=== PATIENT | female | born 1975 | race Caucasian/White ===

== ENCOUNTER 2025-06-25 09:10 | Outpatient (CLI) | payer OTHER, SELFPAY ==
--- NOTE | 2025-06-25 09:00 | MM_ITS ---
WS: [id number] BILATERAL 3D TOMOSYNTHESIS DIGITAL SCREENING MAMMOGRAPHY WITH CAD CLINICAL INFORMATION: SCREENING HISTORY: Screening mammogram. No current complaints. COMPARISON: None available TECHNIQUE: Bilateral CC and MLO views. FINDINGS: The breasts are composed of heterogeneous fibroglandular density tissue, which can limit the detection of small underlying mass lesions. Nodular focal asymmetric density measuring 9 mm posterior depth RIGHT breast near the 6 o'clock position. Recommend further evaluation with RIGHT breast diagnostic ma mmography and ultrasound if persistent. Unremarkable LEFT breast MM/MM scr BI tomosynthesis [id number] IMPRESSION: DENSITY: The breasts are heterogeneously dense, which may obscure small masses. BI-RADS: 0 - Incomplete: Need additional imaging evaluation FOLLOW UP: Need Additional Imaging Recommend further evaluation with RIGHT breast diagnostic mammography and ultra sound if persistent.
== END 2025-06-25 09:11 | disposition home or self-care (01) ==
LOC: MOBLMAM 09:13
PROVIDERS: PCP Nurse Practitioner Family; Visit Provider Nurse Practitioner Family
DX: Z12.31 Encounter for screening mammogram for malignant neoplasm of breast (principal); R92.333 Mammographic heterogeneous density, bilateral breasts; R92.323 Mammographic fibroglandular density, bilateral breasts; R92.8 Other abnormal and inconclusive findings on diagnostic imaging of breast; N63.14 Unspecified lump in the right breast, lower inner quadrant
CPT/HCPCS: 77063; 77067